=== PATIENT | female | born 1980 | race Caucasian/White ===

== ENCOUNTER 2017-04-08 06:24 | Emergency (ER) | payer BC ==
[2017-04-08] MEDS ORDERED: Ondansetron 4 MG/2 ML SDV IVPUSH ONE ×2 (07:03→09:41)
[2017-04-08] MEDS ORDERED: Famotidine 20 MG/2 ML SDV IVPUSH ONE (07:03)
[2017-04-08] MEDS ORDERED: Sodium Chloride 0.9% 10 ML Syringe FLUSH PRN (07:03)
--- NOTE | 2017-04-08 07:08 | EDM.PDOC ---
ED HPI GENERAL MEDICAL PROBLEM - General Chief Complaint: Gastrointestinal Problem Stated Complaint: STOMACH ISSUES Time Seen by Provider: 04/08/17 06:57 Source of Information: Reports: Patient, RN Notes Reviewed - History of Present Illness INITIAL COMMENTS - FREE TEXT/NARRATIVE: 36 year old female comes in with vomiting, diarrhea. This started early this AM about 3 hrs ago. Was feeling fine last evening. upper abd pain and cramping with this. No diarrhea. No major chest pain or difficulty breathing. Epigastric Pain Score (Numeric/FACES): 8 - Related Data Allergies Allergy/AdvReac Type Severity Reaction Status Date / Time No Known Allergies Allergy Verified 04/08/17 06:37 Home Meds: Home Meds Lisinopril [Prinivil] 10 mg PO DAILY 04/08/17 [History] Ondansetron [Zofran ODT] 4 mg PO Q6H PRN #7 tab.dis 04/08/17 [Rx] Past Medical History - Past Health History Medical/Surgical History: Denies Medical/Surgical History Cardiovascular History: Reports: Hypertension Genitourinary History: Reports: Other (See Below) Other Genitourinary History: rupture of bladder TODDLER GUIDE History: Reports: Musculoskeletal History: Reports: Other (See Below) Other Musculoskeletal History: Pin in finger on right hand, pelvic fracture Social & Family History - Tobacco Use Smoking Status *Q: Never Smoker - Caffeine Use Caffeine Use: Reports: None - Recreational Drug Use Recreational Drug Use: No ED ROS GENERAL - Review of Systems Review Of Systems: See Below Constitutional: Denies: Fever, Chills, Diaphoresis HEENT: Denies: Throat Pain Respiratory: Denies: Shortness of Breath, Pleuritic Chest Pain Cardiovascular: Denies: Chest Pain GI/Abdominal: Reports: Abdominal Pain, Nausea, Vomiting (repetitively) : Reports: No Symptoms Musculoskeletal: Reports: No Symptoms Skin: Reports: No Symptoms ED EXAM, GI/ABD - Physical Exam Exam: See Below General Appearance: Alert, Anxious, Moderate Distress, Other (vomiting on my arrival to exam room) Throat/Mouth: Normal Inspection, Normal Oropharynx Head: Atraumatic Neck: Supple, Full Range of Motion Respiratory/Chest: No Respiratory Distress, Lungs Clear, Normal Breath Sounds Cardiovascular: Regular Rate, Rhythm GI/Abdominal Exam: Tender (upper mid abd). No: Guarding, Rebound Extremities: Normal Inspection, Normal Range of Motion Neurological: Alert, Oriented, No Motor/Sensory Deficits Skin Exam: Warm, Dry, Normal Color Course - Vital Signs Last Recorded V/S: Last Vital Signs Temp 97.1 F 04/08/17 06:33 Pulse 92 04/08/17 09:05 Resp 18 04/08/17 09:05 BP 133/82 04/08/17 09:05 Pulse Ox 100 04/08/17 09:05 - Orders/Labs/Meds Orders: Active Orders 24 hr Category Date Time Status Peripheral IV Care [RC] . DIRECTED Care 04/08/17 07:04 Active Sodium Chloride 0.9% [Normal Saline] 1,000 ml Med 04/08/17 07:15 Active IV ONETIME Sodium Chloride 0.9% [Normal Saline] 1,000 ml Med 04/08/17 09:15 Active IV ONETIME Sodium Chloride 0.9% [Saline Flush] Med 04/08/17 07:03 Active 10 ml FLUSH ASDIRECTED PRN Peripheral IV Insertion Adult [OM.PC] Stat Oth 04/08/17 07:03 Ordered Medication Orders Sodium Chloride (Normal Saline) 1,000 mls @ 999 mls/hr IV ONETIME GERMAN Last Admin: 04/08/17 07:20 Dose: 999 mls/hr Sodium Chloride (Normal Saline) 1,000 mls @ 999 mls/hr IV ONETIME GERMAN Last Admin: 04/08/17 09:15 Dose: 999 mls/hr Sodium Chloride (Saline Flush) 10 ml FLUSH ASDIRECTED PRN PRN Reason: Keep Vein Open Last Admin: 04/08/17 07:15 Dose: 10 ml Labs: Laboratory Tests 04/08/17 04/08/17 Range/Units 07:30 07:30 WBC 17.80 H (3.98-10.04) K/mm3 RBC 4.94 (3.98-5.22) M/mm3 Hgb 14.0 (11.2-15.7) gm/L Hct 40.4 (34.1-44.9) % MCV 81.8 (79.4-94.8) fl MCH 28.3 (25.6-32.2) pg MCHC 34.7 (32.2-35.5) g/dl RDW Std Deviation 37.6 (36.4-46.3) fL Plt Count 321 (182-369) K/mm3 MPV 10.2 (9.4-12.3) fl Neut % (Auto) 84.9 H (34.0-71.1) % Lymph % (Auto) 8.5 L (19.3-51.7) % [place] % (Auto) 5.4 (4.7-12.5) % Eos % (Auto) 0.6 L (0.7-5.8) Baso % (Auto) 0.2 (0.1-1.2) % Neut # (Auto) 15.10 H (1.56-6.13) K/mm3 Lymph # (Auto) 1.52 (1.18-3.74) K/mm3 [place] # (Auto) 0.97 H (0.24-0.36) K/mm3 Eos # (Auto) 0.10 (0.04-0.36) K/mm3 Baso # (Auto) 0.03 (0.01-0.08) K/mm3 Manual Slide Review Normal smear Sodium 139 (136-145) mEq/L Potassium 3.2 L (3.5-5.1) mEq/L Chloride 105 (98-107) mEq/L Carbon Dioxide 21 (21-32) mEq/L Anion Gap 16.2 H (5-15) BUN 13 (7-18) mg/dL Creatinine 0.8 (0.55-1.02) mg/dL Est Cr Clr Drug Dosing 99.95 mL/min Estimated GFR (MDRD) > 60 (>60) mL/min BUN/Creatinine Ratio 16.3 (14-18) Glucose 148 H (74-106) mg/dL Calcium 9.2 (8.5-10.1) mg/dL Total Bilirubin 0.3 (0.2-1.0) mg/dL AST 11 L (15-37) U/L ALT 18 (14-59) U/L Alkaline Phosphatase 51 (46-116) U/L Total Protein 7.5 (6.4-8.2) g/dl Albumin 4.0 (3.4-5.0) g/dl Globulin 3.5 gm/dL Albumin/Globulin Ratio 1.1 (1-2) Lipase 136 (73-393) U/L Meds: Medications Generic Name Dose Route Start Last Admin Trade Name Freq PRN Reason Stop Dose Admin Sodium Chloride 1,000 mls @ 999 mls/hr 04/08/17 07:15 04/08/17 07:20 Normal Saline IV 999 mls/hr ONETIME GERMAN Administration Sodium Chloride 1,000 mls @ 999 mls/hr 04/08/17 09:15 04/08/17 09:15 Normal Saline IV 999 mls/hr ONETIME GERMAN Administration Sodium Chloride 10 ml 04/08/17 07:03 04/08/17 07:15 Saline Flush FLUSH 10 ml ASDIRECTED PRN Administration Keep Vein Open Discontinued Medications Generic Name Dose Route Start Last Admin Trade Name Freq PRN Reason Stop Dose Admin Famotidine 20 mg 04/08/17 07:03 04/08/17 07:24 Pepcid IVPUSH 04/08/17 07:04 20 mg ONETIME ONE Administration Hydromorphone HCl 0.5 mg 04/08/17 08:13 04/08/17 08:20 Dilaudid IVPUSH 04/08/17 08:14 0.5 mg ONETIME ONE Administration Hydromorphone HCl 0.5 mg 04/08/17 09:41 04/08/17 09:50 Dilaudid IVPUSH 04/08/17 09:42 0.5 mg ONETIME ONE Administration Metoclopramide HCl 5 mg 04/08/17 08:13 04/08/17 08:22 Reglan IVPUSH 04/08/17 08:14 5 mg ONETIME ONE Administration Metoclopramide HCl 5 mg 04/08/17 10:46 Reglan IVPUSH 04/08/17 10:47 ONETIME ONE Ondansetron HCl 4 mg 04/08/17 07:03 04/08/17 07:22 Zofran IVPUSH 04/08/17 07:04 4 mg ONETIME ONE Administration Ondansetron HCl 4 mg 04/08/17 09:41 04/08/17 09:48 Zofran IVPUSH 04/08/17 09:42 4 mg ONETIME ONE Administration - Re-Assessments/Exams Free Text/Narrative Re-Assessment/Exam: 04/08/17 09:50 Labs show that she was getting somewhat dehydrated, better after initial liter of fluid and IV meds but still having some discomfort upper mid abdomen. Not radiating into her back. She is not having diarrhea. We'll run one further liter of normal saline prior to taken the IV out and discharge. Her pain is also getting more severe so we'll give another half milligram Dilaudid IV. We' ll also repeat the Zofran 4 mg IV. Departure - Departure Time of Disposition: 10:48 Disposition: Home, Self-Care 01 Condition: Fair Clinical Impression: Vomiting Abdominal pain Qualifiers: Abdominal location: generalized Qualified Code(s): R10.84 - Generalized abdominal pain - Discharge Information Prescriptions: Ondansetron [Zofran ODT] 4 mg PO Q6H PRN #7 tab.dis PRN Reason: Nausea/Vomiting Instructions: Abdominal Pain, Adult, [id number], Nausea and Vomiting, Adult Referrals: Selene St MD [Primary Care Provider] - Forms: ED Department Discharge Additional Instructions: Clear liquids until this evening, then very careful bland diet as tolerated, Zofran ODT if needed for further nausea or vomiting. Follow-up clinic as needed , return to ED as needed if symptoms worsening in any way. - My Orders Last 24 Hours: My Active Orders 04/08/17 07:03 Sodium Chloride 0.9% [Saline Flush] 10 ml FLUSH ASDIRECTED PRN Peripheral IV Insertion Adult [OM.PC] Stat 04/08/17 07:04 Peripheral IV Care [RC] . DIRECTED 04/08/17 07:15 Sodium Chloride 0.9% [Normal Saline] 1,000 ml IV ONETIME 04/08/17 09:15 Sodium Chloride 0.9% [Normal Saline] 1,000 ml IV ONETIME - Assessment/Plan Last 24 Hours: My Active Orders 04/08/17 07:03 Sodium Chloride 0.9% [Saline Flush] 10 ml FLUSH ASDIRECTED PRN Peripheral IV Insertion Adult [OM.PC] Stat 04/08/17 07:04 Peripheral IV Care [RC] . DIRECTED 04/08/17 07:15 Sodium Chloride 0.9% [Normal Saline] 1,000 ml IV ONETIME 04/08/17 09:15 Sodium Chloride 0.9% [Normal Saline] 1,000 ml IV ONETIME
[2017-04-08] MEDS ORDERED: Sodium Chloride 0.9% 1,000 ML IV SCH ×2 (07:15→09:15)
[2017-04-08] MEDS ORDERED: HYDROmorphone 0.5 MG/0.5 ML Syringe IVPUSH ONE ×2 (08:13→09:41)
[2017-04-08] MEDS ORDERED: Metoclopramide 10 MG/2 ML SDV IVPUSH ONE ×2 (08:13→10:46)
== END 2017-04-08 11:07 | disposition home or self-care (01) ==
LOC: JD.ED 06:24
DX: R10.84 Generalized abdominal pain (principal); R10.13 Epigastric pain; R11.10 Vomiting, unspecified; Z79.899 Other long term (current) drug therapy
CPT/HCPCS: 36415; 80053; 83690; 85025; 96361; 96374; 96375; 96376; 99284; J1170; J2405; J2765; J7040; J7050